=== PATIENT | male | born 1945 | race Caucasian/White ===

== ENCOUNTER 2016-09-21 17:16 | Inpatient (IN) | payer MEDICARE, BC ==
--- NOTE | 2016-09-21 17:26 | PCM.HP ---
H&P History of Present Illness - General Date of Service: 09/21/16 Source of Information: Patient, Family History Limitations: Reports: Altered mental status - History of Present Illness Initial Comments - Free Text/Narative: Reg comes in from home as his is unable to take care of him. 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 He also is Type IV renal failure on dialysis 3 times weekly. He is extremely weak and unable to care for himself of any ADL' s. He has lost a significant amount of weiht and recently had GI blood loss and dx with ulcerative colitis. Generalized Pain Score (Numeric/FACES): 3 - Related Data Allergies/Adverse Reactions: Allergies Allergy/AdvReac Type Severity Reaction Status Date / Time hydrocodone AdvReac Intermediate Hallucinati Verified 08/27/15 04:45 ons Home Medications: Home Meds Acetaminophen 650 mg PO Q6H PRN 09/21/16 [History] Albuterol [Proventil Neb Soln] 1 vial INH Q4H PRN 09/21/16 [History] Aspirin [Ecotrin] 81 mg PO DAILY 09/21/16 [History] Bcomplex,C,Folic Acid,Zn 1 tab PO QPM 09/21/16 [History] Budesonide [Budesonide EC] 9 mg PO DAILY 09/21/16 [History] Calcium Acetate 667 mg PO TIDMEALS 09/21/16 [History] Cholecalciferol (Vitamin D3) [Vitamin D3] 1,000 units PO WITHLUNCH 09/21/16 [ History] Gentamicin [Gentamicin 0.1%] 1 applic TOP DAILY 09/21/16 [History] Insulin Glarg,Human.Rec.Analog [Lantus] 10 units SUBCUT BEDTIME 09/21/16 [ History] L.acidoph,Paracasei, B.lactis [Probiotic] 1 cap PO DAILY 09/21/16 [History] Lidocaine 5% [Lidoderm 5%] 1 patch TOP DAILY 09/21/16 [History] Loratadine [Claritin] 10 mg PO DAILY PRN 09/21/16 [History] Melatonin/Pyridoxine HCl (B6) [Melatonin 3 mg Tablet] 3 mg PO BEDTIME PRN [History] Mesalamine [Lialda] 4.8 gm PO DAILY 09/21/16 [History] Ondansetron [Zofran ODT] 4 mg PO Q8H PRN 09/21/16 [History] Sennosides/Docusate Sodium [Senna Laxative Tablet] 8.6 mg PO DAILY PRN 09/21/16 [History] Tamsulosin [Flomax] 0.4 mg PO DAILY 09/21/16 [History] atorvaSTATin [Lipitor] 40 mg PO BEDTIME 09/21/16 [History] traMADol [Ultram] 25 mg PO Q6H PRN 09/21/16 [History] Past Medical History HEENT History: Reports: Cataract, Glaucoma, Hard of hearing, Impaired vision Cardiovascular History: Reports: Heart murmur, High cholesterol, Hypertension, SD, Pacemaker Respiratory History: Reports: Bronchitis, recurrent, Sleep apnea Gastrointestinal History: Reports: Chronic constipation, Chronic diarrhea Genitourinary History: Reports: Diabetic nephropathy, Renal disease Other Genitourinary History: kidney problems Musculoskeletal History: Reports: Amputation, Fracture, Osteoarthritis Neurological History: Reports: Other (see below) Other Neuro History: 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 Psychiatric History: Reports: Anxiety Endocrine/Metabolic History: Reports: Diabetes, type II, Obesity/BMI 30+ Hematologic History: Reports: Anemia Dermatologic History: Reports: Cellulitis Other Dermatologic History: Tumor removed above left eye brow - Infectious Disease History Infectious Disease History: Reports: Other (see below) Other Infectious Disease History: unable to obtain - Past Surgical History HEENT Surgical History: Reports: Cataract surgery Cardiovascular Surgical History: Reports: Carotid stents, Pacer GI Surgical History: Reports: Cholecystectomy, Colonoscopy Neurological Surgical History: Reports: None Musculoskeletal Surgical History: Reports: Amputation Other Musculoskeletal Surgeries/Procedures:: R great toe amputation. Left middle finger partial amputation Social & Family History - Family History Endocrine/Metabolic: Reports: Diabetes, type II - Tobacco Use Smoking Status *Q: Never Smoker Second Hand Smoke Exposure: No - Caffeine Use Caffeine Use: Reports: Coffee - Alcohol Use Days Per Week of Alcohol Use: 0 - Recreational Drug Use Recreational Drug Use: No H&P Review of Systems - Review of Systems: Review Of Systems: See Below General: Reports: weakness, decreased appetite, other (weight loss) HEENT: Reports: other (weight loss, hoarsness, and hearing loss.) Pulmonary: Reports: Shortness of Breath Cardiovascular: Reports: palpitations Gastrointestinal: Reports: Difficulty swallowing Genitourinary: Reports: no symptoms Musculoskeletal: Reports: back pain, joint pain Skin: Reports: rash Psychiatric: Reports: depression Exam - Exam Exam: See Below - Vital Signs Weight: 211 lb 13.828 oz - Exam General: cooperative, moderate distress HEENT: PERRLA Neck: supple Lungs: Clear to auscultation Cardiovascular: irregular rhythm Abdomen: normal bowel sounds Extremities: other (BKA Right leg) Skin: warm, dry Neuro Extensive - Mental Status: memory loss-recent events Neuro Extensive - Motor, Sensory, Reflexes: CN II-XII intact Psychiatric: depressed - Patient Data Result Diagrams: 09/22/16 05:52 09/22/16 05:52 *Q Meaningful Use (ADM) - VTE *Q VTE Criteria *Q: - Stroke *Q Stroke Criteria *Q: - AMI *Q AMI Criteria *Q: Problem List Initiated/Reviewed/Updated: Yes Assessment/Plan Comment:: Assessment/Plan #1. Ulcerative colitis. Will continue with the meds as listed #2. Hypotension. Have recently changed his drugs. He is off all hypertensive medication. #3. ASHD without Angina. Condition stable. #4. Chronic kidney failure. On dialysis #5. Chronic Atrial Fibrillation. #6. Generalized Weakness. #7. Type II DM. with complications. Will watch blood sugars #8. S/P Right BKA
[2016-09-21] MEDS ORDERED: Sodium Chloride 0.9% 10 ML Syringe FLUSH PRN (17:39)
[2016-09-21] MEDS ORDERED: Acetaminophen 325 MG Tab PO PRN ×2 (18:40→20:29)
[2016-09-21] MEDS ORDERED: Albuterol 0.083% 2.5 MG/3 ML Neb Soln INH PRN (20:29)
[2016-09-21] MEDS ORDERED: Ondansetron 4 MG Tab.DIS PO PRN (20:29)
[2016-09-21] MEDS ORDERED: Loratadine 10 MG Tab PO PRN (20:29)
[2016-09-21] MEDS ORDERED: Insulin Detemir 100 Units/ML 3 ML Pen SUBCUT SCH (21:00)
[2016-09-21] MEDS: Melatonin 3 MG Tab PO PRN (21:42)
[2016-09-21] MEDS: atorvaSTATin 20 MG Tab PO SCH (21:42)
[2016-09-21] MEDS: traMADol 50 MG Tab PO PRN (21:43)
[2016-09-21] MEDS: Vitamin B Complex Tab PO SCH (21:44)
[2016-09-22] MEDS: Aspirin 81 MG Tab.EC PO SCH (08:45)
[2016-09-22] MEDS: Lactobacillus Rhamnosus GG (Probiotic) Cap PO SCH (08:45)
[2016-09-22] MEDS: Tamsulosin 0.4 MG Cap.ER PO SCH (08:45)
[2016-09-22] MEDS ORDERED: GENTAMICIN TOP SCH (09:00)
[2016-09-22] MEDS: Lidocaine 5% 700 MG Patch TOP SCH (09:54)
[2016-09-22] MEDS: BUDESONIDE 3 MG PO SCH (12:22)
[2016-09-22] MEDS: Cholecalciferol (Vitamin D3) 1,000 Unit Tab PO SCH (12:23)
[2016-09-22] MEDS: Vitamin B Complex Tab PO SCH (17:13)
[2016-09-22] MEDS: atorvaSTATin 20 MG Tab PO SCH (21:24)
[2016-09-22] MEDS: Insulin Detemir 100 Units/ML 3 ML Pen SUBCUT SCH (21:25)
--- NOTE | 2016-09-22 22:58 | PCM.PN ---
- General Info Date of Service: 09/22/16 Admission Dx/Problem (Free Text): He was admitted yesterday in a very weak condition. The is unable to care for him su[facility] bed was not available. In general his appetite has been poor. His blood sugars have been good control according to his but has generalized weakness has a BKA and she's unable to lift him and take care of him at home. Functional Status: Reports: pain controlled - Review of Systems General: Reports: Weakness, Fatigue, Appetite HEENT: Reports: dysphasia Cardiovascular: Reports: Dyspnea on Exertion Gastrointestinal: Reports: Difficulty swallowing Genitourinary: Reports: no symptoms Musculoskeletal: Reports: foot pain (Phantom pain from BKA right leg) - Patient Data Vitals - most recent: Last Vital Signs Temp 95 F L 09/22/16 19:08 Pulse 115 H 09/22/16 19:17 Resp 24 H 09/22/16 19:08 BP 92/68 09/22/16 19:08 Pulse Ox 94 L 09/22/16 19:17 Weight - most recent: 150 lb 12.739 oz I&O - last 24 hours: Intake & Output 09/22/16 09/22/16 09/22/16 06:59 14:59 22:59 Intake Total 100 360 Balance 100 360 Lab Results last 24 hrs: Laboratory Results - last 24 hr 09/22/16 09/22/16 Range/Units 05:52 05:52 WBC 13.1 H (4.5-11.0) K/uL RBC 3.48 L (4.30-5.90) M/uL Hgb 11.6 L (12.0-15.0) g/dL Hct 33.4 L (40.0-54.0) % MCV 96 (80-98) fL MCH 33 H (27-31) pg MCHC 35 (32-36) % Plt Count 230 (150-400) K/uL Sodium 135 L (140-148) mmol/L Potassium 4.1 (3.6-5.2) mmol/L Chloride 96 L (100-108) mmol/L Carbon Dioxide 23 (21-32) mmol/L Anion Gap 20.1 H (5.0-14.0) mmol/L BUN 32 H (7-18) mg/dL Creatinine 3.3 H (0.8-1.3) mg/dL Est Cr Clr Drug Dosing 19.25 mL/min Estimated GFR (MDRD) 19 L (>60) Glucose 85 (74-106) mg/dL Calcium 8.4 L (8.5-10.1) mg/dL Total Bilirubin 0.9 D (0.2-1.0) mg/dL AST 108 H D (15-37) U/L ALT 168 H (12-78) U/L Alkaline Phosphatase 271 H D (46-116) U/L Total Protein 7.2 (6.4-8.2) g/dL Albumin 2.2 L (3.4-5.0) g/dL Globulin 5.0 H (2.3-3.5) g/dL Albumin/Globulin Ratio 0.4 L (1.2-2.2) Med Orders - Current: Current Medications Acetaminophen (Tylenol) 650 mg PO Q6H PRN PRN Reason: temp greater than 100.5 Albuterol (Proventil Neb Soln) 2.5 mg INH Q4H PRN PRN Reason: Shortness of Breath Aspirin (Halfprin) 81 mg PO DAILY [facility] Last Admin: 09/22/16 08:45 Dose: 81 mg Atorvastatin Calcium (Lipitor) 40 mg PO BEDTIME DAI Last Admin: 09/22/16 21:24 Dose: 40 mg Budesonide (Entocort Ec) 9 mg PO DAILY [facility] Last Admin: 09/22/16 12:22 Dose: 9 mg Cholecalciferol (Vitamin D3) 1,000 units PO WITHLUNCH [facility] Last Admin: 09/22/16 12:23 Dose: 1,000 units Insulin Detemir (Levemir) 10 unit SUBCUT BEDTIME [facility] Last Admin: 09/22/16 21:25 Dose: 10 units Lactobacillus Rhamnosus (Culturelle) 1 cap PO DAILY DAI Last Admin: 09/22/16 08:45 Dose: 1 cap Lidocaine (Lidoderm 5%) 700 mg TOP DAILY [facility] Last Admin: 09/22/16 09:54 Dose: 700 mg Loratadine (Claritin) 10 mg PO DAILY PRN PRN Reason: Allergies Last Admin: 09/21/16 21:42 Dose: 10 mg Melatonin (Melatonin) 3 mg PO BEDTIME PRN PRN Reason: Insomnia Last Admin: 09/21/16 21:42 Dose: 3 mg Miscellaneous Information (Remove Patch) 1 ea TRDERM 2100 [facility] Last Admin: 09/22/16 21:30 Dose: 1 ea Non-Formulary Medication (Calcium Acetate [Calcium Acetate]) 667 mg PO TIDMEALS [facility] Non-Formulary Medication (Gentamicin [Gentamicin 0.1%]) 1 applic TOP DAILY [facility] Non-Formulary Medication (Mesalamine [Lialda]) 4.8 gm PO DAILY [facility] Ondansetron HCl (Zofran Odt) 4 mg PO Q8H PRN PRN Reason: Nausea Senna/Docusate Sodium (Senna Plus) 1 tab PO DAILY PRN PRN Reason: Constipation Last Admin: 09/21/16 21:42 Dose: 1 tab Sodium Chloride (Saline Flush) 10 ml FLUSH ASDIRECTED PRN PRN Reason: Keep Vein Open Tamsulosin HCl (Flomax) 0.4 mg PO DAILY [facility] Last Admin: 09/22/16 08:45 Dose: 0.4 mg Tramadol HCl (Ultram) 25 mg PO Q6H PRN PRN Reason: Pain Last Admin: 09/21/16 21:43 Dose: 25 mg Vitamin B Complex (Vitamin B Complex) 1 each PO QPM [facility] Last Admin: 09/22/16 17:13 Dose: 1 each Discontinued Medications Insulin Detemir (Levemir) 10 unit SUBCUT BEDTIME [facility] Last Admin: 09/21/16 22:09 Dose: Not Given - Exam General: moderate distress HEENT: Pupils equal, Pupils reactive, EOMI, Mucous membr. moist/pink Neck: supple Lungs: Clear to auscultation Cardiovascular: Regular Rate, Regular Rhythm Abdomen: bowel sounds present, no tenderness Back Exam: paraspinal tenderness Extremities: edema Peripheral Pulses: 1+: radial (L), radial (R) Skin: warm, dry Psy/Mental Status: labile mood, depressed - Problem List Review Problem List Initiated/Reviewed/Updated: Yes - My Orders Last 24 Hours: My Active Orders 09/22/16 00:35 SCD [Sequential Compression Device] [OM.PC] Routine 09/22/16 08:00 Calcium Acetate [Calcium Acetate] 667 mg PO TIDMEALS 09/22/16 09:00 Aspirin [Halfprin] 81 mg PO DAILY Budesonide [Entocort EC] 9 mg PO DAILY Gentamicin [Gentamicin 0.1%] 1 applic TOP DAILY Lactobacillus Rhamnosus GG [Culturelle] 1 cap PO DAILY Lidocaine 5% [Lidoderm 5%] 700 mg TOP DAILY Mesalamine [Lialda] 4.8 gm PO DAILY Tamsulosin [Flomax] 0.4 mg PO DAILY 09/22/16 10:49 Air Mattress [Pressure Reduction Mattress] [OM.PC] Routine 09/22/16 12:00 Cholecalciferol (Vitamin D3) [Vitamin D3] 1,000 units PO WITHLUNCH 09/22/16 21:00 Insulin Detemir [Levemir] 10 unit SUBCUT BEDTIME Remove Patch 1 ea TRDERM 2100 09/22/16 Breakfast Consistent Carbohydrate Diet [DIET] 09/23/16 07:30 GLUCOSE POC LAB TO COLLECT [POC] QIDACANDBED 09/23/16 11:30 GLUCOSE POC LAB TO COLLECT [POC] QIDACANDBED 09/23/16 16:30 GLUCOSE POC LAB TO COLLECT [POC] QIDACANDBED 09/23/16 21:00 GLUCOSE POC LAB TO COLLECT [POC] QIDACANDBED 09/24/16 07:30 GLUCOSE POC LAB TO COLLECT [POC] QIDACANDBED 09/24/16 11:30 GLUCOSE POC LAB TO COLLECT [POC] QIDACANDBED 09/24/16 16:30 GLUCOSE POC LAB TO COLLECT [POC] QIDACANDBED 09/24/16 21:00 GLUCOSE POC LAB TO COLLECT [POC] QIDACANDBED 09/25/16 07:30 GLUCOSE POC LAB TO COLLECT [POC] QIDACANDBED 09/25/16 11:30 GLUCOSE POC LAB TO COLLECT [POC] QIDACANDBED 09/25/16 16:30 GLUCOSE POC LAB TO COLLECT [POC] QIDACANDBED 09/25/16 21:00 GLUCOSE POC LAB TO COLLECT [POC] QIDACANDBED - Plan Plan:: Assessment/Plan #1. Ulcerative colitis. Will continue with the meds as listed. Condition stable at present time. #2. Hypotension. Have recently changed his drugs for blood pressure #3. ASHD without Angina. #4. Chronic kidney failure. On dialysis #5. Chronic Atrial Fibrillation. #6. Generalized Weakness. #7. Type II DM. with complications. Will watch blood sugars #8. S/P Right BKA
[2016-09-23] MEDS: traMADol 50 MG Tab PO PRN ×2 (01:03→06:47)
[2016-09-23] MEDS: Melatonin 3 MG Tab PO PRN (01:03)
[2016-09-23] MEDS: Aspirin 81 MG Tab.EC PO SCH (08:30)
[2016-09-23] MEDS: Lactobacillus Rhamnosus GG (Probiotic) Cap PO SCH (08:30)
[2016-09-23] MEDS: BUDESONIDE 3 MG PO SCH (08:31)
[2016-09-23] MEDS: Lidocaine 5% 700 MG Patch TOP SCH (08:31)
[2016-09-23] MEDS: Tamsulosin 0.4 MG Cap.ER PO SCH (08:31)
[2016-09-23] MEDS: Cholecalciferol (Vitamin D3) 1,000 Unit Tab PO SCH (11:18)
--- NOTE | 2016-09-23 14:14 | PCM.PN ---
- General Info Date of Service: 09/23/16 Admission Dx/Problem (Free Text): His verbal communication is very poor. He is unable to keep much at all. I talked with his . He is complaining of pain in his neck. His pain level is a 6/10. The pain is sharp with movement but constantly dull. Functional Status: Reports: pain controlled - Review of Systems General: Reports: Weakness, Fatigue, Appetite HEENT: Reports: other (He is complaining about neck pain.) Pulmonary: Reports: cough Cardiovascular: Reports: No Symptoms Gastrointestinal: Reports: No symptoms Genitourinary: Reports: no symptoms Musculoskeletal: Reports: neck pain Neurological: Reports: No Symptoms Psychiatric: Reports: depression - Patient Data Vitals - most recent: Last Vital Signs Temp 96.7 F 09/23/16 14:00 Pulse 82 09/23/16 03:00 Resp 16 09/23/16 14:00 BP 85/57 L 09/23/16 14:00 Pulse Ox 91 L 09/23/16 03:00 Weight - most recent: 150 lb 12.739 oz I&O - last 24 hours: Intake & Output 09/22/16 09/23/16 09/23/16 22:59 06:59 14:59 Intake Total 480 500 Balance 480 500 Med Orders - Current: Current Medications Acetaminophen (Tylenol) 650 mg PO Q6H PRN PRN Reason: temp greater than 100.5 Last Admin: 09/23/16 11:21 Dose: 650 mg Albuterol (Proventil Neb Soln) 2.5 mg INH Q4H PRN PRN Reason: Shortness of Breath Aspirin (Halfprin) 81 mg PO DAILY [facility] Last Admin: 09/23/16 08:30 Dose: 81 mg Atorvastatin Calcium (Lipitor) 40 mg PO BEDTIME [facility] Last Admin: 09/22/16 21:24 Dose: 40 mg Budesonide (Entocort Ec) 9 mg PO DAILY [facility] Last Admin: 09/23/16 08:31 Dose: 9 mg Cholecalciferol (Vitamin D3) 1,000 units PO WITHLUNCH [facility] Last Admin: 09/23/16 11:18 Dose: 1,000 units Eszopiclone (Lunesta) 2 mg PO BEDTIME PRN PRN Reason: Insomnia Insulin Detemir (Levemir) 10 unit SUBCUT BEDTIME [facility] Last Admin: 09/22/16 21:25 Dose: 10 units Lactobacillus Rhamnosus (Culturelle) 1 cap PO DAILY [facility] Last Admin: 09/23/16 08:30 Dose: 1 cap Lidocaine (Lidoderm 5%) 700 mg TOP DAILY [facility] Last Admin: 09/23/16 08:31 Dose: 700 mg Loratadine (Claritin) 10 mg PO DAILY PRN PRN Reason: Allergies Last Admin: 09/21/16 21:42 Dose: 10 mg Melatonin (Melatonin) 3 mg PO BEDTIME PRN PRN Reason: Insomnia Last Admin: 09/23/16 01:03 Dose: 3 mg Miscellaneous Information (Remove Patch) 1 ea TRDERM 2100 [facility] Last Admin: 09/22/16 21:30 Dose: 1 ea Non-Formulary Medication (Calcium Acetate [Calcium Acetate]) 667 mg PO TIDMEALS [facility] Non-Formulary Medication (Mesalamine [Lialda]) 4.8 gm PO DAILY [facility] Ondansetron HCl (Zofran Odt) 4 mg PO Q8H PRN PRN Reason: Nausea Senna/Docusate Sodium (Senna Plus) 1 tab PO DAILY PRN PRN Reason: Constipation Last Admin: 09/21/16 21:42 Dose: 1 tab Sodium Chloride (Saline Flush) 10 ml FLUSH ASDIRECTED PRN PRN Reason: Keep Vein Open Tamsulosin HCl (Flomax) 0.4 mg PO DAILY [facility] Last Admin: 09/23/16 08:31 Dose: 0.4 mg Tramadol HCl (Ultram) 25 mg PO Q6H PRN PRN Reason: Pain Last Admin: 09/23/16 06:47 Dose: 25 mg Vitamin B Complex (Vitamin B Complex) 1 each PO QPM [facility] Last Admin: 09/22/16 17:13 Dose: 1 each Discontinued Medications Insulin Detemir (Levemir) 10 unit SUBCUT BEDTIME [facility] Last Admin: 09/21/16 22:09 Dose: Not Given - Exam General: cooperative, moderate distress HEENT: Pupils equal, Pupils reactive Neck: other (There is pain to movement of neck level 4/10 dull in character) Lungs: Clear to auscultation Cardiovascular: Irregular Rhythm Abdomen: bowel sounds present, soft, no tenderness, no distension Skin: warm, dry, intact Wound/Incisions: No: erythema improving Psy/Mental Status: depressed - Problem List Review Problem List Initiated/Reviewed/Updated: Yes - My Orders Last 24 Hours: My Active Orders 09/22/16 21:00 Insulin Detemir [Levemir] 10 unit SUBCUT BEDTIME Remove Patch 1 ea THU 2100 09/23/16 14:05 Eszopiclone [Lunesta] 2 mg PO BEDTIME PRN 09/23/16 16:30 GLUCOSE POC LAB TO COLLECT [POC] QIDACANDBED 09/23/16 21:00 GLUCOSE POC LAB TO COLLECT [POC] QIDACANDBED 09/24/16 07:30 GLUCOSE POC LAB TO COLLECT [POC] QIDACANDBED 09/24/16 11:30 GLUCOSE POC LAB TO COLLECT [POC] QIDACANDBED 09/24/16 16:30 GLUCOSE POC LAB TO COLLECT [POC] QIDACANDBED 09/24/16 21:00 GLUCOSE POC LAB TO COLLECT [POC] QIDACANDBED 09/25/16 07:30 GLUCOSE POC LAB TO COLLECT [POC] QIDACANDBED 09/25/16 11:30 GLUCOSE POC LAB TO COLLECT [POC] QIDACANDBED 09/25/16 16:30 GLUCOSE POC LAB TO COLLECT [POC] QIDACANDBED 09/25/16 21:00 GLUCOSE POC LAB TO COLLECT [POC] QIDACANDBED - Plan Plan:: Assessment/Plan #1. Ulcerative colitis. Will continue with the meds as listed. Condition stable at present time. #2. Hypotension. Have recently changed his drugs for blood pressure #3. ASHD without Angina. #4. Chronic kidney failure. On dialysis #5. Chronic Atrial Fibrillation. #6. Generalized Weakness. #7. Type II DM. with complications. Will watch blood sugars #8. S/P Right BKA. #9. Lack of appetite. I spoke with his she said he has no problems swallowing usually but his appetite is down and does what he thought she suggested using liquid supplement which we'll start today.
[2016-09-23] MEDS ORDERED: Naloxone 0.4 MG/ML SDV IV PRN (15:05)
[2016-09-23] MEDS ORDERED: Meperidine 300 MG/30 ML PCA Vial IV PRN ×2 (15:05→15:21)
[2016-09-23] MEDS: LIALDA 1.2 GM PO SCH (15:12)
[2016-09-23] MEDS: Dextrose 5%-0.9% NaCl 1,000 ML IV SCH (15:36)
[2016-09-23] MEDS: Vitamin B Complex Tab PO SCH (17:21)
[2016-09-23] MEDS: CALCIUM ACETATE 667 MG PO SCH (17:21)
[2016-09-23] MEDS: atorvaSTATin 20 MG Tab PO SCH ×2 (21:36→22:34)
[2016-09-23] MEDS: Insulin Detemir 100 Units/ML 3 ML Pen SUBCUT SCH (21:36)
[2016-09-23] MEDS ORDERED: Sodium Chloride 0.9% 250 ML IV SCH (21:45)
[2016-09-23] MEDS ORDERED: Fludrocortisone 0.1 MG Tab PO ONE (22:00)
[2016-09-24] MEDS: Dextrose 5%-0.9% NaCl 1,000 ML IV SCH (04:56)
[2016-09-24] MEDS: CALCIUM ACETATE 667 MG PO SCH ×2 (08:26→12:05)
[2016-09-24] MEDS: BUDESONIDE 3 MG PO SCH (08:27)
[2016-09-24] MEDS: Aspirin 81 MG Tab.EC PO SCH (08:28)
[2016-09-24] MEDS: Lactobacillus Rhamnosus GG (Probiotic) Cap PO SCH (08:28)
[2016-09-24] MEDS: Tamsulosin 0.4 MG Cap.ER PO SCH (08:28)
[2016-09-24] MEDS: Lidocaine 5% 700 MG Patch TOP SCH (08:29)
--- NOTE | 2016-09-24 08:55 | PCM.PN ---
- General Info Admission Dx/Problem (Free Text): He gives minimal verbal information as his voice is very low and appears depressed. Functional Status: Reports: pain controlled - Review of Systems General: Reports: Weakness, Fatigue, Appetite HEENT: Reports: no symptoms Pulmonary: Reports: no symptoms Cardiovascular: Reports: No Symptoms Gastrointestinal: Reports: No symptoms Musculoskeletal: Reports: no symptoms Skin: Reports: no symptoms Neurological: Reports: Trouble Speaking, Weakness, Other (Unable to ambulate) - Patient Data Vitals - most recent: Last Vital Signs Temp 95.1 F L 09/24/16 07:00 Pulse 136 H 09/24/16 07:00 Resp 18 09/24/16 07:00 BP 82/58 L 09/24/16 07:00 Pulse Ox 94 L 09/24/16 07:00 Weight - most recent: 151 lb 14.376 oz I&O - last 24 hours: Intake & Output 09/23/16 09/24/16 09/24/16 22:59 06:59 14:59 Intake Total 170 1420 Balance 170 1420 Med Orders - Current: Current Medications Acetaminophen (Tylenol) 650 mg PO Q6H PRN PRN Reason: temp greater than 100.5 Last Admin: 09/23/16 11:21 Dose: 650 mg Albuterol (Proventil Neb Soln) 2.5 mg INH Q4H PRN PRN Reason: Shortness of Breath Aspirin (Halfprin) 81 mg PO DAILY [facility] Last Admin: 09/24/16 08:28 Dose: 81 mg Atorvastatin Calcium (Lipitor) 40 mg PO BEDTIME DAI Last Admin: 09/23/16 22:34 Dose: 40 mg Budesonide (Entocort Ec) 9 mg PO DAILY [facility] Last Admin: 09/24/16 08:27 Dose: 9 mg Cholecalciferol (Vitamin D3) 1,000 units PO WITHLUNCH DAI Last Admin: 09/23/16 11:18 Dose: 1,000 units Eszopiclone (Lunesta) 2 mg PO BEDTIME PRN PRN Reason: Insomnia Dextrose/Sodium Chloride (Dextrose 5%-Normal Saline) 1,000 mls @ 75 mls/hr IV ASDIRECTED DAI Last Admin: 09/24/16 04:56 Dose: 75 mls/hr Sodium Chloride (Normal Saline) 250 mls @ 999 mls/hr IV ASDIRECTED DAI Last Admin: 09/23/16 22:32 Dose: 999 mls/hr Insulin Detemir (Levemir) 10 unit SUBCUT BEDTIME [facility] Last Admin: 09/23/16 21:36 Dose: Not Given Lactobacillus Rhamnosus (Culturelle) 1 cap PO DAILY [facility] Last Admin: 09/24/16 08:28 Dose: 1 cap Lidocaine (Lidoderm 5%) 700 mg TOP DAILY [facility] Last Admin: 09/24/16 08:29 Dose: 700 mg Loratadine (Claritin) 10 mg PO DAILY PRN PRN Reason: Allergies Last Admin: 09/21/16 21:42 Dose: 10 mg Melatonin (Melatonin) 3 mg PO BEDTIME PRN PRN Reason: Insomnia Last Admin: 09/23/16 01:03 Dose: 3 mg Miscellaneous Information (Remove Patch) 1 ea TRDERM 2100 [facility] Last Admin: 09/23/16 20:16 Dose: 1 ea Calcium Acetate 667 (Mg (Ptom)) 0 mg PO TIDMEALS [facility] Last Admin: 09/24/16 08:26 Dose: 667 mg Lialda 1.2gm Tab ( (Ptom)) 0 gm PO DAILY@0800 [facility] Last Admin: 09/23/16 15:12 Dose: 4.8 gm Ondansetron HCl (Zofran Odt) 4 mg PO Q8H PRN PRN Reason: Nausea Senna/Docusate Sodium (Senna Plus) 1 tab PO DAILY PRN PRN Reason: Constipation Last Admin: 09/21/16 21:42 Dose: 1 tab Sodium Chloride (Saline Flush) 10 ml FLUSH ASDIRECTED PRN PRN Reason: Keep Vein Open Tamsulosin HCl (Flomax) 0.4 mg PO DAILY [facility] Last Admin: 09/24/16 08:28 Dose: 0.4 mg Tramadol HCl (Ultram) 25 mg PO Q6H PRN PRN Reason: Pain Last Admin: 09/23/16 06:47 Dose: 25 mg Vitamin B Complex (Vitamin B Complex) 1 each PO QPM [facility] Last Admin: 09/23/16 17:21 Dose: 1 each Discontinued Medications Fludrocortisone Acetate (Florinef) 0.1 mg PO ONETIME ONE Stop: 09/24/16 22:01 Last Admin: 09/23/16 22:34 Dose: 0.1 mg Fludrocortisone Acetate (Florinef) 0.1 mg PO ONETIME ONE Stop: 09/23/16 22:01 Last Admin: 09/23/16 23:03 Dose: Not Given Insulin Detemir (Levemir) 10 unit SUBCUT BEDTIME DAI Last Admin: 09/21/16 22:09 Dose: Not Given Meperidine HCl (Demerol Bag Checker 300 Mg In 30 Ml) 0 mg IV ASDIRECTED PRN; Protocol PRN Reason: PAIN Last Admin: 09/23/16 15:41 Dose: 300 mg Naloxone HCl (Narcan) 0.1 mg IV ASDIRECTED PRN PRN Reason: DECREASED RESPIRATORY RATE - Exam General: oriented, cooperative, mild distress HEENT: Pupils equal, Pupils reactive, EOMI, Mucous membr. moist/pink Lungs: Clear to auscultation Cardiovascular: Irregular Rhythm Abdomen: bowel sounds present, soft Extremities: no edema Peripheral Pulses: 1+: radial (L), radial (R) Skin: warm, dry, intact - Problem List Review Problem List Initiated/Reviewed/Updated: Yes - My Orders Last 24 Hours: My Active Orders 09/23/16 14:05 Eszopiclone [Lunesta] 2 mg PO BEDTIME PRN 09/23/16 14:09 Supplement (Dietary) [Dietary Supplements] [RC] TIDMEALS 09/23/16 14:42 Dietary Supplements [RC] WITHMEALSANDBED 09/23/16 14:45 Dextrose 5%-0.9% NaCl [Dextrose 5%-Normal Saline] 1,000 ml IV ASDIRECTED 09/23/16 15:00 Mesalamine [Lialda] 0 gm PO DAILY@0800 09/23/16 17:00 Calcium Acetate [Calcium Acetate] 0 mg PO TIDMEALS 09/23/16 20:30 Overnight Pulse Oximetry [RC] Click to Edit 09/23/16 21:45 Sodium Chloride 0.9% [Normal Saline] 250 ml IV ASDIRECTED 09/24/16 11:30 GLUCOSE POC LAB TO COLLECT [POC] QIDACANDBED 09/24/16 16:30 GLUCOSE POC LAB TO COLLECT [POC] QIDACANDBED 09/24/16 21:00 GLUCOSE POC LAB TO COLLECT [POC] QIDACANDBED 09/25/16 07:30 GLUCOSE POC LAB TO COLLECT [POC] QIDACANDBED 09/25/16 11:30 GLUCOSE POC LAB TO COLLECT [POC] QIDACANDBED 09/25/16 16:30 GLUCOSE POC LAB TO COLLECT [POC] QIDACANDBED 09/25/16 21:00 GLUCOSE POC LAB TO COLLECT [POC] QIDACANDBED - Plan Plan:: Assessment/Plan #1. Ulcerative colitis. Will continue with the meds as listed. Condition stable at present time. #2. Hypotension. Have recently stopped his pressure pressure medicine. #3. ASHD without Angina. #4. Chronic kidney failure. On dialysis #5. Chronic Atrial Fibrillation. #6. Generalized Weakness. #7. Type II DM. with complications. Will watch blood sugars #8. S/P Right BKA. #9. Lack of appetite. I spoke with his she said he has no problems swallowing usually but his appetite is down and does what he thought she suggested using liquid supplement which we'll start today. #10. Liver dysfunction. Liver tests remain elevated. This has been before not acute. WBC elevated. Repeat blood work pending. Will discharge to dialysis today and then to the intermediate.
[2016-09-24] MEDS: LIALDA 1.2 GM PO SCH (09:43)
[2016-09-24 10:38] VITALS: BP 93/67
[2016-09-24] MEDS: traMADol 50 MG Tab PO PRN (10:43)
[2016-09-24] MEDS: Cholecalciferol (Vitamin D3) 1,000 Unit Tab PO SCH (12:05)
--- NOTE | 2016-09-24 14:27 | PCM.DCSUM1 ---
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 Hospital Course: He made slow improvement while in the hospital was unable to ambulate. His food intake was very poor as well as his fluid intake. His creatinine went up to 5.5 the day of discharge and dialysis. He'll be going to the skilled nursing for terminal care. Hospice will be seeing him as well. - Patient Instructions Diet: Heart Healthy Diet - Discharge Plan Home Medications: Home Meds Acetaminophen 650 mg PO Q6H PRN 09/21/16 [History] Albuterol [Proventil Neb Soln] 1 vial INH Q4H PRN 09/21/16 [History] Aspirin [Ecotrin] 81 mg PO DAILY 09/21/16 [History] Bcomplex,C,Folic Acid,Zn 1 tab PO QPM 09/21/16 [History] Budesonide [Budesonide EC] 9 mg PO DAILY 09/21/16 [History] Calcium Acetate 667 mg PO TIDMEALS 09/21/16 [History] Cholecalciferol (Vitamin D3) [Vitamin D3] 1,000 units PO WITHLUNCH 09/21/16 [ History] Gentamicin [Gentamicin 0.1%] 1 applic TOP DAILY 09/21/16 [History] Insulin Glarg,Human.Rec.Analog [Lantus] 10 units SUBCUT BEDTIME 09/21/16 [ History] L.acidoph,Paracasei, B.lactis [Probiotic] 1 cap PO DAILY 09/21/16 [History] Lidocaine 5% [Lidoderm 5%] 1 patch TOP DAILY 09/21/16 [History] Loratadine [Claritin] 10 mg PO DAILY PRN 09/21/16 [History] Melatonin/Pyridoxine HCl (B6) [Melatonin 3 mg Tablet] 3 mg PO BEDTIME PRN [History] Mesalamine [Lialda] 4.8 gm PO DAILY 09/21/16 [History] Ondansetron [Zofran ODT] 4 mg PO Q8H PRN 09/21/16 [History] Sennosides/Docusate Sodium [Senna Laxative Tablet] 8.6 mg PO DAILY PRN 09/21/16 [History] Tamsulosin [Flomax] 0.4 mg PO DAILY 09/21/16 [History] atorvaSTATin [Lipitor] 40 mg PO BEDTIME 09/21/16 [History] traMADol [Ultram] 25 mg PO Q6H PRN 09/21/16 [History] Insulin Detemir [Levemir] 10 unit SUBCUT BEDTIME pen 09/24/16 [Rx] - Discharge Summary/Plan Comment DC Time >30 min.: Yes Discharge Summary/Plan Comment: His decided not to continue with dialysis and he is requesting from the nurse to let him he does not want to live. His wanted the IV taken out and she canceled the ride for dialysis and he'll be going to [facility] - General Info Functional Status: Reports: pain controlled - Review of Systems General: Reports: Weakness, Fatigue HEENT: Reports: no symptoms Pulmonary: Reports: no symptoms, pleuritic chest pain Cardiovascular: Reports: No Symptoms Gastrointestinal: Reports: Decreased appetite, Difficulty swallowing Genitourinary: Reports: retention Musculoskeletal: Reports: no symptoms Skin: Reports: no symptoms - Patient Data Vitals - Most Recent: Last Vital Signs Temp 96.3 F 09/24/16 10:37 Pulse 133 H 09/24/16 10:37 Resp 18 09/24/16 10:37 BP 93/67 09/24/16 10:37 Pulse Ox 94 L 09/24/16 10:37 Weight - Most Recent: 151 lb 14.376 oz I&O - Last 24 hours: Intake & Output 09/23/16 09/24/16 09/24/16 22:59 06:59 14:59 Intake Total 170 1420 Balance 170 1420 Lab Results - Last 24 hrs: Laboratory Results - last 24 hr 09/24/16 09/24/16 Range/Units 09:20 09:20 WBC 18.5 H (4.5-11.0) K/uL RBC 3.12 L (4.30-5.90) M/uL Hgb 10.4 L (12.0-15.0) g/dL Hct 30.8 L (40.0-54.0) % MCV 99 H (80-98) fL MCH 33 H (27-31) pg MCHC 34 (32-36) % Plt Count 241 (150-400) K/uL Neut % (Auto) 89 H (36-66) % Lymph % (Auto) 7 L (24-44) % [place] % (Auto) 3 (2-6) % Eos % (Auto) 0 L (2-4) % Baso % (Auto) 0 (0-1) % Sodium 134 L (140-148) mmol/L Potassium 4.1 (3.6-5.2) mmol/L Chloride 97 L (100-108) mmol/L Carbon Dioxide 25 (21-32) mmol/L Anion Gap 16.1 H (5.0-14.0) mmol/L BUN 56 H D (7-18) mg/dL Creatinine 5.4 H* D (0.8-1.3) mg/dL Est Cr Clr Drug Dosing 11.76 mL/min Estimated GFR (MDRD) 10 L (>60) Glucose 158 H (74-106) mg/dL Calcium 8.1 L (8.5-10.1) mg/dL Total Bilirubin 0.8 (0.2-1.0) mg/dL AST 90 H (15-37) U/L ALT 153 H (12-78) U/L Alkaline Phosphatase 263 H (46-116) U/L Total Protein 6.5 (6.4-8.2) g/dL Albumin 2.2 L (3.4-5.0) g/dL Globulin 4.3 H (2.3-3.5) g/dL Albumin/Globulin Ratio 0.5 L (1.2-2.2) Med Orders - Current: Current Medications Discontinued Medications Acetaminophen (Tylenol) 650 mg PO Q6H PRN PRN Reason: temp greater than 100.5 Last Admin: 09/23/16 11:21 Dose: 650 mg Albuterol (Proventil Neb Soln) 2.5 mg INH Q4H PRN PRN Reason: Shortness of Breath Aspirin (Halfprin) 81 mg PO DAILY [facility] Last Admin: 09/24/16 08:28 Dose: 81 mg Atorvastatin Calcium (Lipitor) 40 mg PO BEDTIME [facility] Last Admin: 09/23/16 22:34 Dose: 40 mg Budesonide (Entocort Ec) 9 mg PO DAILY [facility] Last Admin: 09/24/16 08:27 Dose: 9 mg Cholecalciferol (Vitamin D3) 1,000 units PO WITHLUNCH [facility] Last Admin: 09/24/16 12:05 Dose: 1,000 units Eszopiclone (Lunesta) 2 mg PO BEDTIME PRN PRN Reason: Insomnia Fludrocortisone Acetate (Florinef) 0.1 mg PO ONETIME ONE Stop: 09/24/16 22:01 Last Admin: 09/23/16 22:34 Dose: 0.1 mg Fludrocortisone Acetate (Florinef) 0.1 mg PO ONETIME ONE Stop: 09/23/16 22:01 Last Admin: 09/23/16 23:03 Dose: Not Given Dextrose/Sodium Chloride (Dextrose 5%-Normal Saline) 1,000 mls @ 75 mls/hr IV ASDIRECTED [facility] Last Admin: 09/24/16 04:56 Dose: 75 mls/hr Sodium Chloride (Normal Saline) 250 mls @ 999 mls/hr IV ASDIRECTED [facility] Last Admin: 09/23/16 22:32 Dose: 999 mls/hr Insulin Detemir (Levemir) 10 unit SUBCUT BEDTIME [facility] Last Admin: 09/21/16 22:09 Dose: Not Given Insulin Detemir (Levemir) 10 unit SUBCUT BEDTIME [facility] Last Admin: 09/23/16 21:36 Dose: Not Given Lactobacillus Rhamnosus (Culturelle) 1 cap PO DAILY [facility] Last Admin: 09/24/16 08:28 Dose: 1 cap Lidocaine (Lidoderm 5%) 700 mg TOP DAILY [facility] Last Admin: 09/24/16 08:29 Dose: 700 mg Loratadine (Claritin) 10 mg PO DAILY PRN PRN Reason: Allergies Last Admin: 09/21/16 21:42 Dose: 10 mg Melatonin (Melatonin) 3 mg PO BEDTIME PRN PRN Reason: Insomnia Last Admin: 09/23/16 01:03 Dose: 3 mg Meperidine HCl (Demerol [employer] 300 Mg In 30 Ml) 0 mg IV ASDIRECTED PRN; Protocol PRN Reason: PAIN Last Admin: 09/23/16 15:41 Dose: 300 mg Miscellaneous Information (Remove Patch) 1 ea TRDERM 2100 [facility] Last Admin: 09/23/16 20:16 Dose: 1 ea Naloxone HCl (Narcan) 0.1 mg IV ASDIRECTED PRN PRN Reason: DECREASED RESPIRATORY RATE Calcium Acetate 667 (Mg (Ptom)) 0 mg PO TIDMEALS [facility] Last Admin: 09/24/16 12:05 Dose: 667 mg Lialda 1.2gm Tab ( (Ptom)) 0 gm PO DAILY@0800 [facility] Last Admin: 09/24/16 09:43 Dose: 4.8 gm Ondansetron HCl (Zofran Odt) 4 mg PO Q8H PRN PRN Reason: Nausea Senna/Docusate Sodium (Senna Plus) 1 tab PO DAILY PRN PRN Reason: Constipation Last Admin: 09/21/16 21:42 Dose: 1 tab Sodium Chloride (Saline Flush) 10 ml FLUSH ASDIRECTED PRN PRN Reason: Keep Vein Open Tamsulosin HCl (Flomax) 0.4 mg PO DAILY [facility] Last Admin: 09/24/16 08:28 Dose: 0.4 mg Tramadol HCl (Ultram) 25 mg PO Q6H PRN PRN Reason: Pain Last Admin: 09/24/16 10:43 Dose: 25 mg Vitamin B Complex (Vitamin B Complex) 1 each PO QPM [facility] Last Admin: 09/23/16 17:21 Dose: 1 each - Exam General: Reports: cooperative, moderate distress HEENT: Reports: Pupils equal, Pupils reactive, EOMI, Mucous membr. moist/pink Neck: Reports: supple Lungs: Reports: Clear to auscultation Cardiovascular: Reports: Regular Rate, Regular Rhythm Abdomen: Reports: bowel sounds present, soft, no tenderness, no distension Extremities: Reports: other (right BKA with coolness of left leg) Skin: Reports: warm Wound/Incisions: Reports: decubitis Neurological: Reports: no new focal deficit, strength equal bilateral Psy/Mental Status: Reports: depressed *Q Meaningful Use (DIS) - VTE *Q VTE Criteria *Q: - Stroke *Q Stroke Criteria *Q: - AMI *Q AMI Criteria *Q:
[2016-09-24] MEDS ORDERED: Fludrocortisone 0.1 MG Tab PO ONE (22:00)
== END 2016-09-24 13:30 | DRG 386 ==
LOC: JP.MS 17:54 → JP.ICU 09-22 12:30 → JP.MS 09-22 12:30
PROVIDERS: ADMIT Internal Medicine; ATTEND Internal Medicine
DX: K51.90 Ulcerative colitis, unspecified, without complications (principal); N18.4 Chronic kidney disease, stage 4 (severe); Z51.5 Encounter for palliative care; K76.89 Other specified diseases of liver; I48.2 Chronic atrial fibrillation; I12.9 Hypertensive chronic kidney disease with stage 1 through stage 4 chronic kidney disease, or unspecified chronic kidney disease; Z99.2 Dependence on renal dialysis; E11.21 Type 2 diabetes mellitus with diabetic nephropathy; Z79.4 Long term (current) use of insulin; Z89.511 Acquired absence of right leg below knee; I95.9 Hypotension, unspecified; R63.0 Anorexia; H40.9 Unspecified glaucoma; E78.00 Pure hypercholesterolemia, unspecified; I25.2 Old myocardial infarction; Z95.0 Presence of cardiac pacemaker; G47.30 Sleep apnea, unspecified; K59.09 Other constipation; M19.90 Unspecified osteoarthritis, unspecified site; I25.10 Atherosclerotic heart disease of native coronary artery without angina pectoris; H54.7 Unspecified visual loss; H91.90 Unspecified hearing loss, unspecified ear; R53.1 Weakness; Z79.82 Long term (current) use of aspirin; Z88.8 Allergy status to other drugs, medicaments and biological substances
CPT/HCPCS: 36415; 80053; 82962; 85025; 85027; 94762; A9270-GY; J2175; J7050